=== PATIENT | male | born 1995 | race Hispanic/Latino ===

== ENCOUNTER 2019-12-21 11:31 | Emergency (ER) | payer SELFPAY ==
[~2019-12-21] VITALS: Ht 167.6 cm; Wt 99.8 kg
[2019-12-21] MEDS ORDERED: MELOXICAM7.5 MG PO (11:45)
[2019-12-21] MEDS ORDERED: ACETAMINOPHEN500 MG PO (11:45)
[2019-12-21] MEDS ORDERED: [UNRECOGNIZED DRUG - OTHER] PO (11:55)
--- OUTSIDE RECORDS SUMMARY | 2019-12-21 20:04 | XMS ---
PreManage Notification: DANNY FRAZIER Security Luggage [employer] Events No recent Security Events currently on file CRITERIA MET - [facility] - 2 Visits in 30 Days CARE PROVIDERS [facility] Primary [facility] PHONE: Unknown Tracey has no Care Guidelines for this patient. E.DGala VISIT COUNT (12 MO.) [address] [place] [address] TOTAL 2 NOTE: Visits indicate total known visits. ED/UCC VISIT TRACKING (12 MO.) 12/21/2019 11:[address] [facility] [place] TYPE: Emergency COMPLAINT: - SOB/NECK PAIN 12/18/2019 00:53 [facility] TYPE: Emergency DIAGNOSES: - Elevated blood-pressure reading, w/o diagnosis of htn - Generalized enlarged lymph nodes INPATIENT VISIT TRACKING (12 MO.) No inpatient visits to display in this time frame [email or web address]
== END 2019-12-21 20:02 | disposition short-term general hospital (02) ==
LOC: ED 11:31
DX: L03.221 Cellulitis of neck (principal); L03.313 Cellulitis of chest wall; J98.51 Mediastinitis; Z79.899 Other long term (current) drug therapy
CPT/HCPCS: 70491; 71046; 80053; 83605; 85025; 96361; 96368; 99285-25; A9270; J0692; J1170; J1200; J2405; J3370; J7030; J7060; Q9967